=== PATIENT | male | born 1965 | race Caucasian/White ===

== ENCOUNTER 2023-09-02 00:01 | Emergency (ER) | payer BC, SELFPAY ==
--- NOTE | ~2023-09-02 | XR_ITS ---
XR chest 1V portable DATE: 09/02/2023 00:41 INDICATION: Dizziness, nausea, left arm tingling. Neurological symptoms. TECHNIQUE: Portable AP chest on 09/02/2023 at 0037 hours COMPARISON: None FINDINGS: Normal heart size. No hilar or mediastinal enlargement. No pulmonary infiltrate or consolid ation, pleural effusion or pulmonary vascular congestion or pneumothorax. Included skeletal structure s are unremarkable. IMPRESSION: No active cardiopulmonary disease Reviewed, dictated and finalized at location [facility]. BANDER
--- NOTE | ~2023-09-02 | CT_ITS ---
EXAMINATION: CT cervical spine wo con DATE: 09/02/2023 03:14 INDICATION: Left-sided weakness TECHNIQUE: Computed tomography (CT) of the cervical spine was performed without intravenous contrast. Automated exposure control and iterative reconstruction technique were employed. Exam dose: 393.45 mGy-cm total exam DLP. COMPARISON: None FINDINGS: C1 and C2 are normally aligned and the odontoid process is intact. No fracture or dislocati on or locked facet or prevertebral soft tissue swelling is detected. There is moderately severe degenerative disease at C5-6, C6-7, C7-T1. There is uncovertebral joint sp urring at these levels, encroaching upon the respective neural foramina. Comment there is degenerativ e changes apophyseal joints, particularly on the right at C4-5 and on the left at C5-6. IMPRESSION: Cervical spondylosis and lateral no fracture or dislocation or locked facet Reviewed, dictated and finalized at [facility]. Reviewed, dictated and finalized at location [facility]. ON PR[employer]ER IMPRESSION: Cervical spondylosis and lateral no fracture or dislocation or loc ked facet
--- NOTE | ~2023-09-02 | CT_ITS ---
EXAMINATION: CT brain wo con DATE: 09/02/2023 03:14 INDICATION: Left-sided weakness TECHNIQUE: Computed tomography (CT) of the head was performed without intravenous contrast. The mA wa s adjusted according to patient size. Iterative reconstruction technique was employed. Exam dose: 68 1.00 mGy-cm total exam DLP. COMPARISON: None FINDINGS: Suggestion of some enlargement of the right side of the pituitary gland. Recommend clinical correlati on and perhaps MR examination with and without IV contrast if clinically appropriate. Otherwise no intracranial mass lesion or hemorrhage or cerebrovascular accident is detected. No midli ne shift or mass effect. Normal ventricular size. Normal serra-white matter differentiation. No subdur al or epidural hematoma is detected. No fracture or bone destruction of the cranial vault. The mastoid air cells and paranasal sinuses are normally developed and aerated. IMPRESSION: Suggestion of right pituitary enlargement; consider MR imaging if clinically appropriate Otherwise no significant intracranial abnormality abnormality Reviewed, dictated and finalized at [facility]. Reviewed, dictated and finalized at location [facility]. [employer] SERV[employer] WORKER IMPRESSION: Suggestion of right pituitary enlargement; consider MR imaging if c linically appropriate Otherwise no significant intracranial abnormality abnormality
[2023-09-02 00:09] VITALS: BP 132/93; PULSE 63; RESP 15; TEMP 36.5; O2SAT 95
--- NOTE | 2023-09-02 00:19 | ECG_ITS ---
Measurements Intervals [place] Rate: 58 P: 21 CT: 146 QRS: 17 QRSD: 90 T: 25 QT: 390 QTc: 385 Interpretive Statements SINUS BRADYCARDIA NO PREVIOUS ECG AVAILABLE FOR COMPARISON Electronically Signed On 09-02-2023 13:49:23 [employer]ATIONS OFFICER by Carleen Cherry M.D.
[2023-09-02 00:29] VITALS: BP 140/72; PULSE 73; RESP 15; O2SAT 98
[2023-09-02 00:31] LABS: Basophils Absolute Auto 0.1 K/mm3 (0.0-0.1); Basophils Percent Auto 0.6 % (0.2-1.2); Eosinophils Absolute Auto 0.2 K/mm3 (0-0.3); Eosinophils Percent Auto 2.3 % (0-4.4); Hematocrit 42.5 % (42.0-52.0); Hemoglobin 13.6 g/dL (14.0-18.0); Lymphocytes Absolute Auto 3.25 K/mm3 (0.9-3.2); Mean Corpuscular Volume 90.6 fl (80-100); Mean Platelet Volume 10.7 fl (7.4-10.4); Monocytes Absolute Auto 0.8 K/mm3 (0.1-0.6); Monocytes Percent Auto 8.7 % (2.6-8.5); Neutrophils Absolute Auto 5.1 K/mm3 (1.3-6.7); Neutrophils Percent Auto 53.4 % (45.5-73.1); Platelet Count Result 217 k/mm3 (150-375); Red Blood Count 4.69 M/mm3 (4.6-6.20); Red Cell Distribution Width 12.9 % (11.5-14.5); White Blood Count 9.6 K/mm3 (4.5-10.0)
[2023-09-02 00:44] LABS: Prothrombin Time 13.4 Seconds (11.1-14.7)
[2023-09-02 00:45] LABS: Partial Thromboplastin Time 25.9 SECONDS (22.3-36.8)
[2023-09-02 01:33] LABS: Alanine Aminotransferase 26 U/L (6-50); Albumin Level 3.9 g/dL (3.5-5.1); Alkaline Phosphatase 72 U/L (38-126); Anion Gap 6 mmol/L (8-16); Aspartate Amino Transferase 25 U/L (17-59); Bilirubin,Total 0.5 mg/dL (0.2-1.3); Blood Urea Nitrogen 19 mg/dL (9-20); Calcium 8.8 mg/dL (8.4-10.2); Carbon Dioxide 27 mmol/L (22-30); Chloride 104 mmol/L (98-107); Estimated CRCL calculation 84 ml/min; Estimated Glomerular Filt Rate > 60; Glucose 112 mg/dL (65-110); Potassium 3.8 mmol/L (3.4-5.0); Sodium 137 mmol/L (137-145)
[2023-09-02 01:45] LABS: Troponin I < 0.012 ng/mL (0.000-0.034)
--- NOTE | 2023-09-02 03:47 | ED.NEUROSD ---
HPI - Neuro Symptoms/Deficit General Chief Complaint: Neuro Symptoms/Deficit Stated Complaint: trouble focusing, left hand numbness Time Seen by Provider: 09/02/23 03:33 Source: patient and family ( and son) Mode of arrival: ambulatory Limitations: no limitations History of Present Illness HPI Narrative: 57-year-old male [id number] who presents with intermittent left hand numbness and tingling. He has also been experiencing pain in the back of his neck. today, he developed trouble focusing and sudden onset vision changes and dizziness approximately 2300. is reported that his left eye was stuck and would not look left. the paresthesias that he too was experiencing resolved after approximately 30 minutes. he has had no recurrence of symptoms. Related Data Allergies Allergy/AdvReac Type Severity Reaction Status Date / Time Penicillins Allergy Other Verified 09/02/23 00:15 [facility] Social History Social History (Updated 09/02/23 @ 18:30 by Lelo Medellin MD) Living arrangements: with family Additional living arrangements comments: , has a son Exam Narrative: GENERAL: Well-appearing, well-nourished, and in no acute distress. HEAD: Normocephalic, atraumatic. EYES: Non injected, non icteric. Extraocular movements intact (horizontal and lateral), even with extremes. Pupils grossly normal. Normal visual field testing. ENT: Nares clear, no rhinorrhea or epistaxis. NECK: Supple. CHEST: speaking in full sentences. No respiratory distress. HEART: Regular rate and rhythm. . ABDOMEN: Soft, nondistended. EXTREMITIES: Normal range of motion. No edema. SKIN: Warm, dry, no rash. NEURO: Alert and oriented x3. Speak clearly without aphasia or dysarthria. No motor drift x4. Sensation intact to gross touch throughout. Sensation intact cross bilateral face. Engages muscles of face symmetrically x3 without asymmetry/ loss of nasolabial fold. Slight ataxia with left heel to rayo, normal on the right. No ataxia with finger to finger bilaterally. PSYCH: Normal mood and affect. Course Vital Signs Vital signs: Vital Signs Temperature 97.7 F 09/02/23 00:09 Pulse Rate 63 09/02/23 00:09 Respiratory Rate 15 09/02/23 00:09 Blood Pressure 132/93 H 09/02/23 00:09 Pulse Oximetry 95 09/02/23 00:09 Oxygen Delivery Room Air 09/02/23 00:09 Temperature 97.7 F 09/02/23 00:09 Pulse Rate 71 09/02/23 06:21 Respiratory Rate 15 09/02/23 06:21 Blood Pressure 125/72 09/02/23 06:21 Pulse Oximetry 95 09/02/23 06:21 Oxygen Delivery Room Air 09/02/23 00:09 MDM - Neuro Symptoms/Deficit MDM Narrative Medical decision making narrative: Patient is a 57 yo male R hand dominant who reports with transient left hand numbness and neck pain. At approximately 2300 he also had sudden onset blurred vision with an inability to have his left eye look to the left. reports that it appeared to be stuck in position staring forward. Symptoms resolved and have not recurred. Neuro exam reassuring except slight ataxia with L heel to rayo (though normal finger to finger testing). Patient's report of left eye being unable to deviate temporally does suggest possible lateral rectus muscle issue. Patient CT spine shows disc degeneration and some foraminal stenosis. This does explain his transient paresthesias and patient will likely need further imaging with MRI in the outpatient setting. There is also concern of possible pituitary adenoma which explains patient's symptoms. patient also require further monitoring for this hormone level checks I suspect MRI. This could be accomplished in the outpatient setting patient's PCP and/or Neurology. He does state he has appropriate follow-up with his primary care physician and is given a referral to Neurology. These are discussed with patient and his family extensively in the verify understanding. He is advised to return to the emergency de
[2023-09-02 06:21] VITALS: BP 125/72; PULSE 71; RESP 15; O2SAT 95
[2023-09-02 07:29] LABS: Glucose Point of Care 137 mg/dl (65-105)
== END 2023-09-02 06:23 | disposition home or self-care (01) ==
PROVIDERS: Emergency Provider Student in an Organized Health Care Education/Training Program
DX: D35.2 Benign neoplasm of pituitary gland (principal); M48.02 Spinal stenosis, cervical region
CPT/HCPCS: 36415; 70450; 71045; 72125; 80053; 82948; 84484; 85025; 85610; 85730; 93005; 99284